=== PATIENT | male | born 1955 | race Caucasian/White ===

== ENCOUNTER 2019-08-10 13:28 | Emergency (ER) | payer MEDICARE, MEDICAID ==
[~2019-08-10] VITALS: Ht 182.9 cm; Wt 151.4 kg
[2019-08-10] MEDS ORDERED: pantoprazole 40 MG vial IV ONE (14:40)
[2019-08-10] MEDS ORDERED: normal saline 1000ML IV soln IVB ONE (14:40)
[2019-08-10] MEDS ORDERED: famotidine/PF 10 mg/ml inj IV ONE (14:40)
[2019-08-10] MEDS ORDERED: iohexol 300mg/ml 100ml inj. ONE (15:08)
[2019-08-10] MEDS ORDERED: morphine 4 MG/ML inj SYRINge IV PRN (16:35)
[2019-08-10] MEDS ORDERED: ondansetron/PF 4mg/2ml inj IV PRN (16:35)
[2019-08-10 18:00] VITALS: BP 155/89
[2019-08-10] MEDS ORDERED: LIDOcaine Viscous 15ml cup ONE (18:14)
[2019-08-10] MEDS ORDERED: MIDAZolam 1mg/ml 10ml vial ONE (18:14)
[2019-08-10] MEDS ORDERED: fentaNYL/PF 50MCG/1 ML 2ML syringe ONE (18:14)
[2019-08-10 18:41] VITALS: BP 145/67
[2019-08-10 18:51] VITALS: BP 155/94
[2019-08-10 19:01] VITALS: BP 144/96
[2019-08-10 19:08] VITALS: BP 160/86
--- NOTE | 2019-08-10 19:27 | NUR ---
pt back from GI lab, he is doing well. AOx4. His said his throat hurts when he coughs but otherwise he is fine.
--- NOTE | 2019-08-10 19:30 | NUR ---
Dr Simms at the to evaluate the patient and he asked him multiple questions. The pt is ready to go home. He has a ride here.
--- NOTE | 2019-08-10 19:40 | NUR ---
Pt drank water sips, went well, then he drank a whole cup of water and did fine. He said he sure does feel so much better. I went out into the lobby and got his friend.
[2019-08-10 19:51] VITALS: BP 134/85
== END 2019-08-10 19:53 | disposition home or self-care (01) ==
LOC: ER 13:30
DX: T18.9XXA Foreign body of alimentary tract, part unspecified, initial encounter (principal); R05 Cough; R20.8 Other disturbances of skin sensation; R52 Pain, unspecified; Z88.8 Allergy status to other drugs, medicaments and biological substances; X58.XXXA Exposure to other specified factors, initial encounter; Y93.89 Activity, other specified; Y92.89 Other specified places as the place of occurrence of the external cause; Y99.8 Other external cause status
CPT/HCPCS: 43235; 70491; 71045; 71260; 96374; 96375; 99152; 99285; C9113; J2250; J2270; J2405; J3010; J3490; J7030; J7040; Q9967; A4620

== ENCOUNTER 2021-02-20 14:21 | Emergency (ER) | payer MEDICARE, MEDICAID ==
[~2021-02-20] VITALS: Ht 185.4 cm; Wt 156.8 kg
--- NOTE | 2021-02-20 16:32 | NUR ---
Pt c/o of pain in L flank pain. +Eccymosis L flank. Painful to take a deep breath.
[2021-02-20 16:51] LABS: BASOPHILS # (AUTO) 0.1 X10'3 (0-0.2); BASOPHILS % (AUTO) 0.7 % (0-1); EOSINOPHILS # (AUTO) 0.3 X10'3 (0-0.9); EOSINOPHILS % (AUTO) 3.5 % (0-6); HEMATOCRIT 42.4 % (42.0-52.0); HEMOGLOBIN 14.3 g/dl (14.0-17.9); LYMPHOCYTES # (AUTO) 2.3 X10'3 (1.1-4.8); MEAN CORPUSCULAR HEMOGLOBIN 31.9 PG (27.0-31.0); MEAN CORPUSCULAR HGB CONC 33.6 g/dL (33.0-36.5); MEAN PLATELET VOLUME 9.3 FL (7.4-10.4); NEUTROPHILS # (AUTO) 5.1 X10'3 (1.8-7.7); NEUTROPHILS % (AUTO) 58.8 % (42-75); PLATELET COUNT 213 X10'3 (140-440); RED BLOOD COUNT 4.47 X10'6 (4.70-6.10); WHITE BLOOD COUNT 8.7 X10'3 (4.5-11.0)
[2021-02-20 17:06] LABS: ALANINE AMINOTRANSFERASE 32 U/L (12-78); ALBUMIN 3.7 G/DL (3.4-5.0); ALBUMIN/GLOBULIN RATIO 1.2 (1.1-1.5); ALKALINE PHOSPHATASE 114 IU/L (46-116); ANION GAP 10 (8-16); ASPARTATE AMINO TRANSFERASE 20 U/L (10-37); BILIRUBIN,TOTAL 0.4 MG/DL (0.1-1.0); BLOOD UREA NITROGEN 13 MG/DL (7-18); BUN/CREATININE RATIO 15.3 (5.4-32.0); CALCIUM 8.9 MG/DL (8.5-10.1); CHLORIDE 106 MMOL/L (99-107); CREATININE 0.85 MG/DL (0.60-1.10); GLUCOSE 95 MG/DL (70-104); POTASSIUM 4.1 MMOL/L (3.5-5.1); SODIUM 141 MMOL/L (135-145); TOTAL CARBON DIOXIDE 25.4 MMOL/L (24-32); TOTAL PROTEIN 6.9 G/DL (6.4-8.2); eGFR 90 ML/MIN
[2021-02-20] MEDS ORDERED: HYDROcodone/acetaminophen 10/325mg tab PO ONE (17:40)
[2021-02-20] MEDS ORDERED: normal saline 1000ML IV soln IVB ONE (17:40)
[2021-02-20] MEDS ORDERED: ibuprofen tablet 400 MG TABLET PO ONE (17:40)
[2021-02-20] MEDS ORDERED: morphine 4 MG/ML inj SYRINge IV ONE (17:40)
[2021-02-20] MEDS ORDERED: iohexol 350MG/ML 100ml bottle IV ONE (17:44)
--- NOTE | 2021-02-20 17:52 | NUR ---
PT TRANSPORTED TO CT.
[2021-02-20] MEDS ORDERED: MESSAGE TO NURSING PO ONE (18:25)
[2021-02-20] MEDS ORDERED: HYDR-3965 PO ×2 (19:36→19:37)
[2021-02-20] MEDS ORDERED: NAPR-56 PO (19:36)
[2021-02-20 20:10] VITALS: BP 139/68
== END 2021-02-20 20:12 | disposition home or self-care (01) ==
LOC: ER 14:22
DX: S22.32XA Fracture of one rib, left side, initial encounter for closed fracture (principal); S30.1XXA Contusion of abdominal wall, initial encounter; R07.81 Pleurodynia; M25.552 Pain in left hip; Z88.8 Allergy status to other drugs, medicaments and biological substances; Z79.899 Other long term (current) drug therapy; W00.0XXA Fall on same level due to ice and snow, initial encounter; Y93.89 Activity, other specified; Y92.89 Other specified places as the place of occurrence of the external cause; Y99.8 Other external cause status
CPT/HCPCS: 36415; 71101; 71260; 74177; 80053; 85025; 96374; 99285; J2270; J7030; Q9967

== ENCOUNTER 2021-09-30 12:02 | Observation (INO) | payer MEDICARE, MEDICAID ==
[~2021-09-30] VITALS: Ht 185.4 cm; Wt 152.3 kg
--- NOTE | 2021-09-30 12:39 | NUR ---
Pt connected to quality assurance monitor chassis for further observation.
[2021-09-30 13:51] LABS: BASOPHILS # (AUTO) 0.1 X10'3 (0-0.2); BASOPHILS % (AUTO) 0.6 % (0-1); EOSINOPHILS # (AUTO) 0.3 X10'3 (0-0.9); EOSINOPHILS % (AUTO) 3.4 % (0-6); HEMATOCRIT 41.2 % (42.0-52.0); HEMOGLOBIN 13.7 g/dl (14.0-17.9); LYMPHOCYTES # (AUTO) 2.2 X10'3 (1.1-4.8); LYMPHOCYTES % (AUTO) 25.4 % (21-51); MEAN CORPUSCULAR HEMOGLOBIN 31.3 PG (27.0-31.0); MEAN CORPUSCULAR HGB CONC 33.2 g/dL (33.0-36.5); MEAN CORPUSCULAR VOLUME 94.2 FL (78-98); MEAN PLATELET VOLUME 9.5 FL (7.4-10.4); MONOCYTES % (AUTO) 11.4 % (2-12); NEUTROPHILS # (AUTO) 5.2 X10'3 (1.8-7.7); NEUTROPHILS % (AUTO) 59.2 % (42-75); PLATELET COUNT 193 X10'3 (140-440); RED BLOOD COUNT 4.37 X10'6 (4.70-6.10); RED CELL DISTRIBUTION WIDTH 13.9 % (11.5-14.5); WHITE BLOOD COUNT 8.8 X10'3 (4.5-11.0)
--- NOTE | 2021-09-30 14:09 | NUR ---
spoke to dr. alexander regarding pts knee and spine pain. please see new orders.
[2021-09-30] MEDS ORDERED: HYDROcodone/acetaminophen 10/325mg tab PO ONE (14:10)
[2021-09-30 14:13] LABS: ALANINE AMINOTRANSFERASE 35 U/L (12-78); ALBUMIN 3.5 G/DL (3.4-5.0); ALBUMIN/GLOBULIN RATIO 1.1 (1.1-1.5); ALKALINE PHOSPHATASE 94 IU/L (46-116); ANION GAP 8 (8-16); ASPARTATE AMINO TRANSFERASE 18 U/L (10-37); BILIRUBIN,TOTAL 0.3 MG/DL (0.1-1.0); BLOOD UREA NITROGEN 21 MG/DL (7-18); BUN/CREATININE RATIO 25.9 (5.4-32.0); CALCIUM 8.8 MG/DL (8.5-10.1); CHLORIDE 106 MMOL/L (99-107); CREATININE 0.81 MG/DL (0.60-1.10); GLUCOSE 110 MG/DL (70-104); POTASSIUM 4.3 MMOL/L (3.5-5.1); SODIUM 140 MMOL/L (135-145); TOTAL CARBON DIOXIDE 26.5 MMOL/L (24-32); TOTAL PROTEIN 6.7 G/DL (6.4-8.2); eGFR > 90 ML/MIN
[2021-09-30] MEDS ORDERED: magnesium 4gm in 100ml NS 100 ML IV PRN (15:50)
[2021-09-30] MEDS ORDERED: metoclopramide 5 mg/ml inj IV PRN (15:50)
[2021-09-30] MEDS ORDERED: POTASSIUM BICARB 20meq eff tab 20 MEQ TABLET.EFF PO PRN ×2 (15:50)
[2021-09-30] MEDS ORDERED: metoprolol tartrate 1mg/ml inj IV PRN (15:50)
[2021-09-30] MEDS ORDERED: nitroGLYCERIN 0.4mg SUBLingual tab SL PRN ×2 (15:50)
[2021-09-30] MEDS ORDERED: PERFLUTREN PROTEIN-A MICROSPHR (Optison) 0.22 MG/ML 3ML VIAL IV ONE (15:50)
[2021-09-30] MEDS ORDERED: HYDROcodone/acetaminophen 5mg/325mg tablet PO PRN (15:50)
[2021-09-30] MEDS ORDERED: aspirin 325mg tablet PO ONE (15:50)
[2021-09-30] MEDS ORDERED: magnesium 2GM in 50ml NS 50 ML IV PRN (15:50)
[2021-09-30] MEDS ORDERED: ondansetron/PF 4mg/2ml inj IV PRN (15:50)
[2021-09-30] MEDS ORDERED: aminophylline 500mg/20ml vial IV PRN (15:50)
[2021-09-30] MEDS ORDERED: acetaminophen 325mg tablet PO PRN ×2 (15:50)
[2021-09-30] MEDS ORDERED: regadenoson 0.4mg/5ml syringe IV PRN (15:50)
[2021-09-30] MEDS ORDERED: mag hydrox/Alum hydrox/simeth 30ml oral suspension PO PRN ×2 (15:50)
[2021-09-30] MEDS ORDERED: ondansetron 4mg rapidly disintigrating tab PO PRN (15:50)
[2021-09-30] MEDS ORDERED: morphine 2 MG/ML inj. syringe IV PRN ×2 (15:50)
[2021-09-30] MEDS ORDERED: potassium CL 10mEq/100ml bag 100 ML IV PRN (15:50)
[2021-09-30] MEDS ORDERED: HYDROcodone/acetaminophen 10/325mg tab PO PRN (15:50)
[2021-09-30] MEDS ORDERED: magnesium Cl slow-release 64mg tablet PO PRN (15:50)
[2021-09-30] MEDS ORDERED: magnesium hydroxide 30ml (MOM) UD suspension PO PRN (15:50)
[2021-09-30] MEDS ORDERED: bisacodyl 10mg suppository rectal RC PRN (15:50)
[2021-09-30] MEDS ORDERED: CALC-1215 PO (15:59)
[2021-09-30] MEDS ORDERED: NAPR-996 PO (15:59)
[2021-09-30] MEDS ORDERED: GLIM2TAB6 PO (15:59)
[2021-09-30] MEDS ORDERED: ROPI1TAB6 PO (15:59)
[2021-09-30] MEDS ORDERED: LEVO5TAB13 PO (15:59)
[2021-09-30] MEDS ORDERED: FLUT16SP20 NS (15:59)
[2021-09-30] MEDS ORDERED: MAGN400C PO (15:59)
[2021-09-30] MEDS ORDERED: CYCL-394 PO (15:59)
[2021-09-30] MEDS ORDERED: AMIT50TA3 PO (15:59)
[2021-09-30] MEDS ORDERED: TRIA15CR61 TOP (15:59)
[2021-09-30] MEDS ORDERED: OMEP20CA16 PO (15:59)
[2021-09-30] MEDS ORDERED: ALLO100T49 PO (15:59)
[2021-09-30] MEDS ORDERED: FLO0.4C PO (15:59)
[2021-09-30] MEDS ORDERED: MULT-1085 PO (15:59)
[2021-09-30] MEDS ORDERED: DULO60CA65 PO (15:59)
[2021-09-30] MEDS ORDERED: ATOR-2 PO (15:59)
[2021-09-30] MEDS ORDERED: GABA300C PO (15:59)
[2021-09-30] MEDS ORDERED: METF-438 PO (15:59)
[2021-09-30 16:41] LABS: POTASSIUM 4.3 MMOL/L (3.5-5.1)
--- NOTE | 2021-09-30 16:56 | NUR ---
Patient in room ED 10. I have received report from and had the opportunity to ask questions and awaiting patients arrival
[2021-09-30 17:20] LABS: PHOSPHORUS 3.3 MG/DL (2.3-4.5)
[2021-09-30 17:36] LABS: H PYLORI ANTIBODY NEGATIVE (Neg)
--- NOTE | 2021-09-30 17:48 | NUR ---
patient arrived on unit in stable condition. B/P 167/80 . settled into room , no c/o chest pain ,will continue to monitor
[2021-09-30 17:50] VITALS: BP 167/80
[2021-09-30] MEDS ORDERED: MESSAGE TO PHARMACY PO ONE (17:50)
[2021-09-30] MEDS ORDERED: dextrose 50%-water 50ml dispensing syringe IV PRN ×2 (17:50)
[2021-09-30] MEDS ORDERED: DEXTROSE 15 GM of carb/4 tabs (each vial/BOTTLE has 4 tablets) PO PRN ×2 (17:50)
[2021-09-30] MEDS ORDERED: glucagon, human recombinant 1mg kit SUBCUT PRN (17:50)
[2021-09-30] MEDS ORDERED: insulin Lispro (HumaLOG) vial - multi-dose SQ SCH (17:50)
[2021-09-30 18:00] VITALS: BP 128/75
--- NOTE | 2021-09-30 18:24 | NUR ---
patient states that he smokes marijuana all the time . No complaints at this time. will be NPO after midnight for stress test in am. Report given to Kang VALDIVIA
--- NOTE | 2021-09-30 18:30 | NUR ---
Patient in room PCU 3018. I have received report from alexander and had the opportunity to ask questions and assume patient care.
[2021-09-30 18:34] LABS: HEMOGLOBIN A1C 6.4 % (4.5-6.2)
[2021-09-30] MEDS: docusate sod 100mg capsule PO SCH (19:44)
[2021-09-30] MEDS: allopurinol 100mg tablet PO SCH (19:44)
[2021-09-30] MEDS: K and/or MAG REPLACEMENT MC SCH (19:46)
[2021-09-30] MEDS ORDERED: enoxaparin 40mg/0.4ml syringe SQ SCH (20:00)
[2021-09-30] MEDS ORDERED: temazepam 15mg capsule PO PRN (21:00)
[2021-09-30] MEDS ORDERED: amitriptyline 25mg tablet PO SCH (21:00)
[2021-09-30] MEDS ORDERED: insulin glargine (Lantus) pen - multi-dose SQ SCH (21:00)
[2021-09-30] MEDS ORDERED: ROPINIRole 1mg tablet PO SCH (21:00)
[2021-09-30] MEDS: gabapentin 300mg capsule PO SCH (21:32)
[2021-09-30 22:00] VITALS: BP 144/79
[2021-10-01 02:00] VITALS: BP 138/73
--- NOTE | 2021-10-01 06:45 | NUR ---
Problems reprioritized. Patient report given, questions answered & plan of care reviewed with chi.
[2021-10-01 07:00] VITALS: BP 147/84
[2021-10-01] MEDS ORDERED: pantoprazole 40mg Tablet.DR PO SCH (07:30)
[2021-10-01] MEDS: K and/or MAG REPLACEMENT MC SCH (07:43)
[2021-10-01] MEDS ORDERED: atorvastatin 20mg tablet PO SCH (08:00)
[2021-10-01] MEDS ORDERED: tamsulosin 0.4mg capsule PO SCH (08:00)
[2021-10-01] MEDS ORDERED: duloxetine 30mg CAPSULE.DR PO SCH (08:00)
[2021-10-01] MEDS ORDERED: magnesium oxide 400mg tablet PO SCH (08:00)
[2021-10-01] MEDS ORDERED: cyclobenzaprine 10mg tablet PO SCH (08:00)
[2021-10-01] MEDS ORDERED: aspirin 325mg tablet PO SCH (08:30)
[2021-10-01] MEDS: docusate sod 100mg capsule PO SCH (08:32)
[2021-10-01] MEDS: allopurinol 100mg tablet PO SCH (08:35)
[2021-10-01] MEDS: gabapentin 300mg capsule PO SCH ×2 (11:01→15:44)
[2021-10-01] MEDS ORDERED: aminophylline inj. 10 ML IV ONE (11:49)
[2021-10-01 13:32] VITALS: BP 137/82
[2021-10-01] MEDS ORDERED: OMEP20CA16 PO (15:25)
[2021-10-01] MEDS ORDERED: METF-438 PO (15:25)
[2021-10-01 16:41] VITALS: BP 132/71
--- NOTE | 2021-10-01 17:47 | NUR ---
I ASSUMED CARE OF THIS 66 YR OLD MALE PATIENT SINCE THIS AM, AWAKE, ALERT AND ORIENTEDX4. ON ROOM AIR, NO FORM OF DISTRESS. HAD STRESS TEST DONE. D/TOM POST STRESS TEST PER MD ORDER. D/C INSTRUCTIONS PROVIDED, PT VERBALIZED UNDERSTANDING. IV ACCESS REMOVED. PT AMBULATED OUT OF THE TELE UNIT ACCOMPANIED BY A CIRCULAR KNITTER HELPER AND PICKED UP BY HIS SPOUSE.
--- NOTE | 2021-10-07 13:25 | NUR ---
Case Management DC follow up: Spoke with Patient's via telephone; sleeping. S/P: Patient Reports:Denies Acute/continuous CP, emergent SOB, resp distress, dyspnea,diaphoresis, NV, weakness, vertigo, syncopal episodes, LUNDY, blurry vision s/s of stroke/BE-FAST.Verbalizes Patient had a fleeting moment of dizziness once; however, no further problems since . Denies: dysuria, hematuria, retention, abdominal pain/distention, hematochezia, melena, unexplained bruising, bleeding, fever,chills.Verbalizes understanding of Rx: why prescribed; continues/resumes Rx as ordered.Verbalizes understanding of s/s that warrant a 9-11/ER visit for further evaluation.Verbalizes follow up appointment with 11/19/21, and PCP 11/01/21.Verbalizes nursing care was fine except one nurse that was often on her personal phone . Needs met, questions/concerns addressed at DC. No further questions/concerns regarding recent hospital stay and/or DC status at this time.
== END 2021-10-01 17:45 | disposition home or self-care (01) ==
LOC: ER 12:03 → ED HOLD 15:56 → UNDODISOB 17:10 → PCU 3S 17:44
PROVIDERS: ADMIT Family Medicine; ATTEND Family Medicine
DX: I20.9 Angina pectoris, unspecified (principal); E78.5 Hyperlipidemia, unspecified; I10 Essential (primary) hypertension; E11.9 Type 2 diabetes mellitus without complications; J44.9 Chronic obstructive pulmonary disease, unspecified; M10.9 Gout, unspecified; Z88.8 Allergy status to other drugs, medicaments and biological substances; Z98.890 Other specified postprocedural states; Z79.899 Other long term (current) drug therapy
CPT/HCPCS: 36415; 71045; 78452; 80053; 82948; 83036; 83735; 83880; 84100; 84132; 84443; 84484; 85025; 86677; 93005; 93017; 93306; 96372; 96374; 99285; A9500; G0378; J0280; J1650; J1815; J2785; J7030

== ENCOUNTER 2021-12-12 09:36 | Emergency (ER) | payer MEDICARE, MEDICAID ==
[~2021-12-12] VITALS: Ht 185.4 cm; Wt 150.0 kg
[~2021-12-12 09:36] MED LIST: ALLO100T49 PO; AMIT50TA3 PO; ATOR-2 PO; CALC-1215 PO; CYCL-394 PO; DULO60CA65 PO; FLO0.4C PO; FLUT16SP20 NS; GABA300C PO; LEVO5TAB13 PO; MAGN400C PO; METF-438 PO; MULT-1085 PO; OMEP20CA16 PO; ROPI1TAB6 PO; TRIA15CR61 TOP
[2021-12-12 13:48] VITALS: BP 149/87
== END 2021-12-12 14:12 | disposition home or self-care (01) ==
LOC: ER 09:37
DX: M25.532 Pain in left wrist (principal); I10 Essential (primary) hypertension; J44.9 Chronic obstructive pulmonary disease, unspecified; E11.9 Type 2 diabetes mellitus without complications; Z98.890 Other specified postprocedural states; Z88.8 Allergy status to other drugs, medicaments and biological substances; Z79.899 Other long term (current) drug therapy
CPT/HCPCS: 29125; 73110; 99284

== ENCOUNTER 2022-05-01 06:23 | Emergency (ER) | payer MEDICARE, MEDICAID ==
[~2022-05-01] VITALS: Ht 188 cm; Wt 151.4 kg
[2022-05-01] MEDS ORDERED: HYDROcodone/acetaminophen 5mg/325mg tablet PO ONE (09:25)
[2022-05-01] MEDS ORDERED: orphenadrine citrate 60mg/2ml inj. IM ONE (09:25)
[2022-05-01 10:10] VITALS: BP 160/77
[2022-05-01] MEDS ORDERED: LIDO700A32 TOP (10:12)
[2022-05-01] MEDS ORDERED: ORPH100T2 PO (10:12)
== END 2022-05-01 11:12 | disposition home or self-care (01) ==
LOC: ER 06:24
DX: G89.29 Other chronic pain (principal); M54.59 Other low back pain; M62.838 Other muscle spasm; J44.9 Chronic obstructive pulmonary disease, unspecified; E11.9 Type 2 diabetes mellitus without complications; M54.9 Dorsalgia, unspecified; I10 Essential (primary) hypertension; Z88.6 Allergy status to analgesic agent; Z79.899 Other long term (current) drug therapy; Z79.1 Long term (current) use of non-steroidal anti-inflammatories (NSAID); Z79.2 Long term (current) use of antibiotics
CPT/HCPCS: 72100; 96372; 99284; J2360